=== PATIENT | female | born 1970 | race Caucasian/White ===

== ENCOUNTER 2017-02-28 15:24 | Emergency (ER) | payer MEDICAID, OTHER ==
[~2017-02-28] VITALS: Ht 160 cm; Wt 77.1 kg
[2017-02-28] MEDS ORDERED: predniSONE 20 MG TABLET PO ONE (16:00)
[2017-02-28] MEDS ORDERED: AZITHROMYCIN 250 MG TABLET PO ONE (16:00)
--- NOTE | 2017-02-28 16:28 | NUR ---
Patient discharged to home in stable conditon. Written and verbal after care instructions given to patient. Patient verbalizes understanding of instructions.
--- NOTE | 2017-02-28 16:33 | NUR ---
Patient left ER with brisk steady gait@[id number], pending changing patient's status by our ER registration staff in the [employer] computer system from "PRE-ER status to REG ER status" at this time.
[2017-02-28] MEDS ORDERED: predniSONE 10 MG TABLET ONE (16:34)
[2017-02-28] MEDS ORDERED: AZITHROMYCIN 250 MG TABLET ONE (16:34)
[2017-02-28] MEDS ORDERED: predniSONE 50 MG TABLET ONE (16:34)
== END 2017-02-28 17:11 | disposition home or self-care (01) ==
LOC: ER 17:11
DX: I88.9 Nonspecific lymphadenitis, unspecified (principal); J45.909 Unspecified asthma, uncomplicated; J02.9 Acute pharyngitis, unspecified; Z88.2 Allergy status to sulfonamides; Z88.8 Allergy status to other drugs, medicaments and biological substances; Z91.040 Latex allergy status
CPT/HCPCS: 99283; A4663; J7512 ×2; Q0144

== ENCOUNTER 2017-09-05 15:11 | Emergency (ER) | payer MEDICAID, OTHER ==
[~2017-09-05] VITALS: Ht 162.6 cm; Wt 34.0 kg
--- NOTE | 2017-09-05 17:17 | NUR ---
Patient discharged to home in stable conditon. Written and verbal after care instructions given. Patient verbalizes understanding of instructions.
[2017-09-05 17:18] VITALS: BP 118/85
== END 2017-09-05 17:18 | disposition home or self-care (01) ==
LOC: ER 15:12
DX: R21 Rash and other nonspecific skin eruption (principal); J45.909 Unspecified asthma, uncomplicated; Z88.2 Allergy status to sulfonamides
CPT/HCPCS: A4663

== ENCOUNTER 2017-09-20 02:33 | Emergency (ER) | payer OTHER ==
[~2017-09-20] VITALS: Ht 160 cm; Wt 79.4 kg
--- NOTE | 2017-09-20 02:47 | NUR ---
Dr. Hoover at bedside for MSE
--- NOTE | 2017-09-20 03:00 | NUR ---
Pt stable for discharge per MD. Pt given ACI. Pt verbalized understanding of dc instructions. Pt ambulated out of ER with steady gait
[2017-09-20 03:20] VITALS: BP 154/48
== END 2017-09-20 03:00 | disposition home or self-care (01) ==
LOC: ER 02:36
DX: R21 Rash and other nonspecific skin eruption (principal); J45.909 Unspecified asthma, uncomplicated; Z88.1 Allergy status to other antibiotic agents; Z88.2 Allergy status to sulfonamides
CPT/HCPCS: A4663

== ENCOUNTER 2018-05-13 23:38 | Emergency (ER) | payer OTHER ==
[~2018-05-13] VITALS: Ht 160 cm; Wt 79.4 kg
--- NOTE | 2018-05-13 23:52 | NUR ---
Dr. Peacock at bedside for MSE.
--- NOTE | 2018-05-14 00:04 | NUR ---
Patient discharged to home in stable conditon. Written and verbal after care instructions given. Patient verbalizes understanding of instructions. Patient ambulated out of ER with steady gait, no acute signs of distress, VSS, all belongings taken.
[2018-05-14 00:05] VITALS: BP 127/97
== END 2018-05-14 00:06 | disposition home or self-care (01) ==
LOC: ER 23:40
DX: H60.91 Unspecified otitis externa, right ear (principal); J45.909 Unspecified asthma, uncomplicated; Z88.2 Allergy status to sulfonamides; Z88.8 Allergy status to other drugs, medicaments and biological substances; Z91.040 Latex allergy status
CPT/HCPCS: 99283; A4663

== ENCOUNTER 2019-03-21 21:12 | Emergency (ER) | payer OTHER ==
[~2019-03-21] VITALS: Ht 160 cm; Wt 88.9 kg
[2019-03-21] MEDS ORDERED: OXYCODONE/APAP 5-325 MG TABLET PO ONE ×2 (21:30→22:45)
[2019-03-21] MEDS ORDERED: ONDANSETRON ODT 4 MG TAB.RAPDIS SL ONE ×2 (21:30→22:45)
[2019-03-21] MEDS ORDERED: OXYCODONE/APAP 5-325 MG TABLET ONE ×2 (21:37→22:47)
[2019-03-21] MEDS ORDERED: ONDANSETRON ODT 4 MG TAB.RAPDIS ONE ×2 (21:37→22:50)
--- NOTE | 2019-03-21 22:30 | NUR ---
Crutches dispensed. Pt instructed on proper use of crutches. Patient able to demonstrate correct use of crutches.
--- NOTE | 2019-03-21 22:57 | NUR ---
Patient discharged to home in stable conditon with boyfriend taking patient home. Written and verbal after care instructions given. Patient verbalizes understanding of instructions.
[2019-03-21 22:59] VITALS: BP 110/70
== END 2019-03-21 23:01 | disposition home or self-care (01) ==
LOC: ER 21:12
DX: M79.662 Pain in left lower leg (principal); J45.909 Unspecified asthma, uncomplicated; Z88.2 Allergy status to sulfonamides; Z88.8 Allergy status to other drugs, medicaments and biological substances; Z91.040 Latex allergy status
CPT/HCPCS: 73590; A4663; Q0162

== ENCOUNTER 2020-11-20 02:25 | Emergency (ER) | payer OTHER ==
[~2020-11-20] VITALS: Ht 160 cm; Wt 89.8 kg
[2020-11-20] MEDS ORDERED: ONDANSETRON 4 MG/2 ML VIAL ONE (03:14)
[2020-11-20] MEDS ORDERED: HYDROMORPHONE 2 MG/1 ML DISP.SYRIN ONE (03:14)
[2020-11-20] MEDS ORDERED: HYDROMORPHONE 1 MG/1 ML DISP.SYRIN IM ONE (03:15)
[2020-11-20] MEDS ORDERED: ONDANSETRON 4 MG/2 ML VIAL IM ONE (03:15)
--- NOTE | 2020-11-20 04:00 | NUR ---
Patient states pain is better and dizziness improve. Patient states she is okay to go home now with RX.
--- NOTE | 2020-11-20 04:21 | NUR ---
Patient discharged to home in stable condition with boyfriend taking patient home. Written and verbal after care instructions given. Patient verbalizes understanding of instructions. Stressed follow up or return to ER for worsening s/s.
[2020-11-20 04:25] VITALS: BP 128/62
== END 2020-11-20 04:26 | disposition home or self-care (01) ==
LOC: ER 02:30
DX: H83.02 Labyrinthitis, left ear (principal); Z88.2 Allergy status to sulfonamides; Z88.1 Allergy status to other antibiotic agents; Z91.040 Latex allergy status; J45.909 Unspecified asthma, uncomplicated
CPT/HCPCS: 96372 ×2; 99284; J1170; J2405; A4663

== ENCOUNTER 2021-06-08 08:24 | Inpatient (IN) | payer OTHER ==
[~2021-06-08] VITALS: Ht 160 cm; Wt 89.8 kg
[2021-06-08] MEDS ORDERED: MAG HYDROX/AL HYDROX/SIMETH 30 ML LIQUID UDC PO ONE (08:45)
[2021-06-08] MEDS ORDERED: LIDOCAINE VISCUS 2% 15 ML UDC MM ONE (08:45)
[2021-06-08] MEDS ORDERED: ONDANSETRON 4 MG/2 ML VIAL IV ONE ×2 (08:45→10:30)
[2021-06-08] MEDS ORDERED: IV NORMAL SALINE 1000 ML BAG IV ONE ×2 (08:45→10:00)
[2021-06-08] MEDS ORDERED: PANTOPRAZOLE SODIUM 40 MG VIAL IV ONE (08:45)
[2021-06-08] MEDS ORDERED: LIDOCAINE VISCUS 2% 15 ML UDC ONE (08:56)
[2021-06-08] MEDS ORDERED: PANTOPRAZOLE SODIUM 40 MG VIAL ONE (08:56)
[2021-06-08] MEDS ORDERED: ONDANSETRON 4 MG/2 ML VIAL ONE ×2 (08:56→10:35)
[2021-06-08] MEDS ORDERED: KETOROLAC TROMETHAMINE 15 MG INJ IVP ONE ×2 (09:15→11:15)
[2021-06-08] MEDS ORDERED: KETOROLAC TROMETHAMINE 15 MG INJ ONE ×2 (09:22→11:10)
[2021-06-08] MEDS ORDERED: HYDROMORPHONE 1 MG/1 ML DISP.SYRIN IV ONE ×5 (09:30→13:45)
[2021-06-08] MEDS ORDERED: HYDROMORPHONE 1 MG/1 ML DISP.SYRIN ONE ×4 (09:32→13:53)
[2021-06-08 09:45] LABS: MEAN CORPUSCULAR HEMOGLOBIN 30.1 uug (24.7-32.8); MEAN CORPUSCULAR VOLUME 84.7 fL (75.5-95.3); PLATELET COUNT (AUTO) 251 K/uL (179-408)
[2021-06-08 10:01] LABS: CREATININE 0.7 mg/dL (0.6-1.3); POTASSIUM 3.8 mmol/L (3.5-5.1)
[2021-06-08 10:07] LABS: BILIRUBIN,DIRECT 0.1 mg/dL (0.0-0.2); BILIRUBIN,TOTAL 0.5 mg/dL (0.2-1.0); TOTAL PROTEIN, SERUM 7.8 g/dL (6.4-8.2)
[2021-06-08] MEDS ORDERED: SWABABLE VALVE TRANSFER SET EA MC ONE (10:19)
[2021-06-08] MEDS ORDERED: IV NORMAL SALINE 250 ML IV ONE (10:19)
[2021-06-08] MEDS ORDERED: IOHEXOL 300MG/ML 100 ML INFUS..BTL ONE (10:19)
[2021-06-08] MEDS ORDERED: METRONIDAZOLE 500 MG/NS 100 ML PIGGYBACK IV ONE (13:30)
[2021-06-08] MEDS ORDERED: METRONIDAZOLE 500 MG/NS 100ML 100 ML IV ONE (13:51)
--- NOTE | 2021-06-08 15:10 | NUR ---
Called report to PRESTON Stern.
[2021-06-08 15:30] VITALS: BP 134/82
--- NOTE | 2021-06-08 15:30 | NUR ---
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 dawn with pt, routinfe admission care rendered, initial assessment done and safety measures maintained, kept npo.Call light within reach, dozing on and off during assessment and when awake requesting for pain med.
[2021-06-08] MEDS ORDERED: ONDANSETRON 4 MG/2 ML VIAL IV PRN (16:30)
[2021-06-08] MEDS ORDERED: ACETAMINOPHEN 650 MG SUPP.RECT RC PRN (16:30)
[2021-06-08 16:36] LABS: *BILIRUBIN,URIN NEGATIVE (NEGATIVE); *BLOOD, URINE NEGATIVE (NEGATIVE); *COLOR,URINE YELLOW (YELLOW); *KETONES,URINE 3+ (NEGATIVE); *UROBILINOGEN,URINE 0.2 E.U./dl (NORMAL); LEUKOCYTE ESTERASE ,URINE NEGATIVE (NEGATIVE); NITRITE, URINE NEGATIVE (NEGATIVE); PH,URINE 7.5 (5.0-8.0); UGLUCOSE NEGATIVE (NEGATIVE)
[2021-06-08 16:40] LABS: *CLARITY,URINE HAZY (CLEAR); BACTERIA,URINE MODERATE /HPF (NONE SEEN); SQUAMOUS EPITHELIAL CELL,UR FEW /HPF (NONE SEEN)
[2021-06-08] MEDS: HYDROMORPHONE 1 MG/1 ML DISP.SYRIN IV PRN ×3 (16:53→23:52)
[2021-06-08] MEDS: IV D5/ 0.9% NACL 1,000 ML IV PRN ×2 (17:05→23:52)
--- NOTE | 2021-06-08 18:30 | NUR ---
resting, no distress noted, fiancee in the room, call light within reach
[2021-06-08 20:00] VITALS: BP 156/98
[2021-06-08] MEDS ORDERED: HYDROMORPHONE 1 MG/1 ML DISP.SYRIN IV STA (21:12)
[2021-06-09] MEDS: HYDROMORPHONE 1 MG/1 ML DISP.SYRIN IV PRN ×6 (03:15→23:29)
[2021-06-09] MEDS ORDERED: MEROPENEM 500 MG VIAL IV ONE (04:25)
[2021-06-09 05:39] VITALS: BP 133/80
[2021-06-09] MEDS ORDERED: MEROPENEM 0.5 G in IV NORMAL SALINE 50 ML IV SCH (06:00)
[2021-06-09] MEDS ORDERED: MEROPENEM 0.5 G in IV NORMAL SALINE 50 ML IV ONE (06:00)
[2021-06-09 07:21] LABS: HEMATOCRIT 39.6 % (31.2-41.9); MEAN CORPUSCULAR HEMOGLOBIN 28.8 uug (24.7-32.8); MEAN CORPUSCULAR VOLUME 85.6 fL (75.5-95.3); PLATELET COUNT (AUTO) 233 K/uL (179-408)
--- NOTE | 2021-06-09 07:23 | NUR ---
Awake , alert and oriented. No resp distress. Iv hydration ongoing and tolerated. Assisted to commode. Kept comfortable. Will continue to monitor.
[2021-06-09 07:51] LABS: BILIRUBIN,TOTAL 0.7 mg/dL (0.2-1.0); CREATININE 0.8 mg/dL (0.6-1.3); MAGNESIUM 1.8 mg/dL (1.8-2.4); PHOSPHOROUS 2.7 mg/dL (2.5-4.9); POTASSIUM 3.4 mmol/L (3.5-5.1); TOTAL PROTEIN, SERUM 6.8 g/dL (6.4-8.2)
[2021-06-09] MEDS ORDERED: POTASSIUM CHLORIDE 50 ML IV SCH (08:30)
[2021-06-09] MEDS: PANTOPRAZOLE SODIUM 40 MG VIAL IV SCH (08:56)
[2021-06-09] MEDS ORDERED: ASCO500C6 PO (11:20)
[2021-06-09] MEDS ORDERED: ERGO50CA PO (11:22)
[2021-06-09] MEDS ORDERED: CYAN100T44 GT (11:22)
--- NOTE | 2021-06-09 13:52 | NUR ---
WOUND CARE CONSULT: REVIEWED CHART AND SPOKE WITH NURSING STAFF REGARDING PT'S REDNESS/RASH TO BUTTOCKS, PRESENT ON ADMISSION. RECOMMENDATIONS MADE FOR SKIN CARE AND PROTECTION. DISCUSSED WITH NURSING STAFF. MD IN AGREEMENT WITH PLAN OF CARE.
[2021-06-09] MEDS ORDERED: Z GUARD REMEDY PASTE 57 GM TUBE TOP PRN (14:00)
--- NOTE | 2021-06-09 14:00 | NUR ---
Explained to patient risks/benefits of having midline, gave consent.
[2021-06-09] MEDS: MEROPENEM 0.5 G in IV NORMAL SALINE 50 ML IV SCH ×2 (14:09→23:05)
--- NOTE | 2021-06-09 14:24 | NUR ---
Patient stated she sometimes feel out of breath d/t pain. FISHER PURSE SEINE [place] aware with order to put on 2 lpm via nc prn. Patient tolerated spo2 noted 96%.
[2021-06-09 16:08] VITALS: BP 155/86
[2021-06-09] MEDS: CLOTRIMAZOLE 1% CREAM 30 GM TUBE TOP SCH (17:47)
--- NOTE | 2021-06-09 18:53 | NUR ---
Alert and oriented. Still npo. No nausea or vomiting noted. Pain relived by medication. Midline nurse here to insert. Patient kept comfortable. Call light in reach. Needs attended.
--- NOTE | 2021-06-09 19:20 | NUR ---
Alert oriented, no sob no chest pain, cont on pain management due pancreatitis, abdomen tender to touch, with episode of nausea due to but no emesis, cont to monitor.
[2021-06-09 20:03] VITALS: BP 133/61
[2021-06-09] MEDS: Z GUARD REMEDY PASTE 57 GM TUBE TOP SCH (23:30)
[2021-06-10] MEDS: HYDROMORPHONE 1 MG/1 ML DISP.SYRIN IV PRN ×7 (02:48→23:54)
[2021-06-10 04:55] VITALS: BP 118/64
[2021-06-10] MEDS: MEROPENEM 0.5 G in IV NORMAL SALINE 50 ML IV SCH ×3 (05:04→21:04)
--- NOTE | 2021-06-10 06:32 | NUR ---
Patient alert oriented, no sob no chest pain, cont on pain management due to pancreatitis, patient remain npo at this time, cont to monitor.
[2021-06-10 06:42] LABS: HEMATOCRIT 37.1 % (31.2-41.9); MEAN CORPUSCULAR HEMOGLOBIN 28.8 uug (24.7-32.8); MEAN CORPUSCULAR VOLUME 86.5 fL (75.5-95.3); PLATELET COUNT (AUTO) 212 K/uL (179-408)
[2021-06-10 06:56] LABS: CREATININE 0.7 mg/dL (0.6-1.3); POTASSIUM 3.2 mmol/L (3.5-5.1)
--- NOTE | 2021-06-10 07:15 | NUR ---
received patient in bed awake, no complains of SOB at this time. continues on pain management. call light and belongings within reach. will continue to monitor
[2021-06-10] MEDS: PANTOPRAZOLE SODIUM 40 MG VIAL IV SCH (08:53)
[2021-06-10] MEDS: POTASSIUM CHLORIDE 50 ML IV SCH ×2 (08:53→10:04)
[2021-06-10] MEDS: CLOTRIMAZOLE 1% CREAM 30 GM TUBE TOP SCH ×2 (09:01→17:08)
[2021-06-10] MEDS: Z GUARD REMEDY PASTE 57 GM TUBE TOP SCH ×2 (09:02→20:22)
--- NOTE | 2021-06-10 09:51 | NUR ---
WOUND CARE CONSULT: PT PRESENTS WITH INNER BUTTOCK DISCOLORATION/IRRITATION, PRESENT ON ADMISSION. PT STATES HAS BEEN HAVING LOOSE STOOLS. RECOMMENDATIONS MADE FOR SKIN PROTECTION AND DISCUSSED WITH NURSING STAFF.MD IN AGREEMENT WITH PLAN OF CARE.
--- NOTE | 2021-06-10 11:14 | NUR ---
second bag of regular potassium not given due to patient complaining of too much pain. second bag called pharmacy for kcl with lidodcaine.
[2021-06-10 11:19] VITALS: BP 115/62
[2021-06-10] MEDS ORDERED: POTASSIUM CHLORIDE 10 MEQ, LIDOCAINE-MPF 1% 1 ML in IV DEXTROSE 5% 100 ML IV SCH (12:00)
[2021-06-10 15:09] VITALS: BP 125/54
--- NOTE | 2021-06-10 18:01 | NUR ---
patient in bed sleeping in stable condition, patient continues to be on pain management. no complains of any SOB at this time will report to oncoming shift.
--- NOTE | 2021-06-10 19:30 | NUR ---
RECEIVED PT AWAKE, ALERT AND ORIENTEDX4. FIANCE AT BEDSIDE. PT IN NO ACUTE DISTRESS. IV INTACT. SAFETY AND COMFORT PROVIDED. WILL CONTINUE TO MONITOR.
[2021-06-10 20:20] VITALS: BP 115/66
[2021-06-11] MEDS: HYDROMORPHONE 1 MG/1 ML DISP.SYRIN IV PRN ×6 (03:00→18:27)
[2021-06-11] MEDS: IV D5/ 0.9% NACL 1,000 ML IV PRN ×2 (03:08→19:00)
[2021-06-11 04:15] VITALS: BP 125/62
[2021-06-11] MEDS: MEROPENEM 0.5 G in IV NORMAL SALINE 50 ML IV SCH ×3 (06:05→22:22)
[2021-06-11 06:24] LABS: MEAN CORPUSCULAR HEMOGLOBIN 28.4 uug (24.7-32.8); MEAN CORPUSCULAR VOLUME 87.6 fL (75.5-95.3); PLATELET COUNT (AUTO) 213 K/uL (179-408)
[2021-06-11 06:40] LABS: CREATININE 0.6 mg/dL (0.6-1.3); POTASSIUM 3.2 mmol/L (3.5-5.1)
--- NOTE | 2021-06-11 06:46 | NUR ---
PT SLEPT INTERMITTENTLY. PT IN NO ACUTE DISTRESS. IV INTACT. PRESCRIBED MEDICATION GIVEN AND PT TOLERATED IT WELL. PT GIVEN DILAUDID 1MG AT 2022H, 2354H, 0300Hand 0606h PRN FOR PAIN. PT TOLERATED IT WELL. SAFETY AND COMFORT PROVIDED. ALL NEEDS ARE MET. WILL ENDORSE TO INCOMING NURSE FOR CONTINUITY OF CARE.
[2021-06-11] MEDS: PANTOPRAZOLE SODIUM 40 MG VIAL IV SCH (09:24)
[2021-06-11] MEDS: Z GUARD REMEDY PASTE 57 GM TUBE TOP SCH ×2 (09:25→20:30)
[2021-06-11] MEDS: CLOTRIMAZOLE 1% CREAM 30 GM TUBE TOP SCH ×2 (09:26→17:00)
[2021-06-11] MEDS: POTASSIUM CHLORIDE 20 MEQ TAB.PRT.SR PO SCH ×2 (11:19→12:19)
[2021-06-11 11:20] VITALS: BP 118/59
[2021-06-11 15:36] VITALS: BP 151/84
[2021-06-11 20:12] VITALS: BP 128/71
[2021-06-11] MEDS ORDERED: HYDROMORPHONE 1 MG/1 ML DISP.SYRIN IV ONE (20:15)
--- NOTE | 2021-06-11 20:15 | NUR ---
RECEIVED PATIENT AWAKE IN BED. C/O PAIN IN ABDOMEN. CALLED OUT TO MD FOR FURTHER ORDERS. VSS. IVF INFUSING WELL. CALL LIGHT IN REACH. ALL NEEDS ATTENDED. WILL CONTINUE TO MONITOR AND ASSESS.
[2021-06-11] MEDS: HYDROMORPHONE 2 MG/1 ML DISP.SYRIN IV PRN (22:23)
[2021-06-12] MEDS: HYDROMORPHONE 2 MG/1 ML DISP.SYRIN IV PRN ×5 (03:07→19:57)
[2021-06-12 04:08] VITALS: BP 133/64
[2021-06-12] MEDS: MEROPENEM 0.5 G in IV NORMAL SALINE 50 ML IV SCH ×3 (05:56→21:52)
[2021-06-12] MEDS: IV D5/ 0.9% NACL 1,000 ML IV PRN ×2 (05:56→15:48)
[2021-06-12 06:09] LABS: HEMATOCRIT 34.1 % (31.2-41.9); MEAN CORPUSCULAR HEMOGLOBIN 29.1 uug (24.7-32.8); MEAN CORPUSCULAR VOLUME 86.3 fL (75.5-95.3); PLATELET COUNT (AUTO) 255 K/uL (179-408)
[2021-06-12 06:24] LABS: CREATININE 0.7 mg/dL (0.6-1.3)
[2021-06-12] MEDS: PANTOPRAZOLE SODIUM 40 MG TABLET.DR PO SCH (06:26)
[2021-06-12] MEDS: Z GUARD REMEDY PASTE 57 GM TUBE TOP SCH ×2 (08:03→21:27)
[2021-06-12] MEDS: CLOTRIMAZOLE 1% CREAM 30 GM TUBE TOP SCH ×2 (08:03→16:29)
[2021-06-12 12:00] VITALS: BP 130/86
[2021-06-12 16:00] VITALS: BP 125/86
[2021-06-12 20:12] VITALS: BP 147/60
[2021-06-13] MEDS: HYDROMORPHONE 2 MG/1 ML DISP.SYRIN IV PRN ×3 (00:18→09:04)
[2021-06-13 04:16] VITALS: BP 136/61
--- NOTE | 2021-06-13 04:24 | NUR ---
IV NOTED TO LEFT FA #22 GAUGE, DISLODGED. UNABLE TO RESTART IV. PATIENT HAD A MID-LINE 2 DAYS AGO NOTED TO RIGHT UPPER ARM, THAT INFILTRATED AND WAS REMOVED. CALLED OUT TO ACCESS DEVELOPER FOR MID-LINE INSERTION IN AM.
[2021-06-13] MEDS: MEROPENEM 0.5 G in IV NORMAL SALINE 50 ML IV SCH (06:00)
[2021-06-13] MEDS: PANTOPRAZOLE SODIUM 40 MG TABLET.DR PO SCH (06:19)
--- NOTE | 2021-06-13 06:30 | NUR ---
MERREM IVPB HELD PER APRON TRIMMER. NO IV ACCESS AT THIS TIME. DANCE THERAPIST NOTIFIED THAT PATIENT NEEDS MID-LINE. ENDORSED TO AM SHIFT. WILL CONTINUE TO MONITOR AND ASSESS.
[2021-06-13 06:49] LABS: HEMATOCRIT 37.4 % (31.2-41.9); MEAN CORPUSCULAR HEMOGLOBIN 28.9 uug (24.7-32.8); MEAN CORPUSCULAR VOLUME 86.4 fL (75.5-95.3); PLATELET COUNT (AUTO) 275 K/uL (179-408)
[2021-06-13 07:00] LABS: CREATININE 0.6 mg/dL (0.6-1.3); POTASSIUM 3.5 mmol/L (3.5-5.1)
[2021-06-13] MEDS: Z GUARD REMEDY PASTE 57 GM TUBE TOP SCH ×2 (08:00→20:21)
[2021-06-13] MEDS: GEMFIBROZIL 600 MG TABLET PO SCH ×2 (08:00→20:20)
[2021-06-13] MEDS: CLOTRIMAZOLE 1% CREAM 30 GM TUBE TOP SCH ×2 (08:00→16:04)
[2021-06-13 11:10] VITALS: BP 151/64
[2021-06-13] MEDS: levoFLOXacin 500 MG TABLET PO SCH (13:03)
[2021-06-13] MEDS: HYDROMORPHONE 2 MG/1 ML DISP.SYRIN IM PRN ×3 (13:04→23:01)
[2021-06-13 15:34] VITALS: BP 129/95
[2021-06-13 20:18] VITALS: BP 142/53
[2021-06-14] MEDS: HYDROMORPHONE 2 MG/1 ML DISP.SYRIN IM PRN ×2 (03:52→08:01)
[2021-06-14 04:42] VITALS: BP 142/84
--- NOTE | 2021-06-14 05:50 | NUR ---
Pt slept intermittently throughout the night. Dilaudid given for pain as ordered and per patient's request, tolerated medication well. Denies SOB or chest pain at this time. No distress noted. Safety and comfort provided. No other issues or concerns at this time, will endorse to day shift.
[2021-06-14] MEDS: PANTOPRAZOLE SODIUM 40 MG TABLET.DR PO SCH (06:27)
[2021-06-14 07:44] LABS: CREATININE 0.7 mg/dL (0.6-1.3); POTASSIUM 4.2 mmol/L (3.5-5.1)
[2021-06-14] MEDS: GEMFIBROZIL 600 MG TABLET PO SCH (08:00)
[2021-06-14] MEDS: Z GUARD REMEDY PASTE 57 GM TUBE TOP SCH (08:01)
[2021-06-14] MEDS: CLOTRIMAZOLE 1% CREAM 30 GM TUBE TOP SCH (08:01)
[2021-06-14 09:09] LABS: HEMATOCRIT 38.3 % (31.2-41.9); MEAN CORPUSCULAR HEMOGLOBIN 28.8 uug (24.7-32.8); MEAN CORPUSCULAR VOLUME 86.8 fL (75.5-95.3); PLATELET COUNT (AUTO) 316 K/uL (179-408)
[2021-06-14 11:45] VITALS: BP 125/56
[2021-06-14] MEDS ORDERED: ONDA4TAB5 PO (12:49)
[2021-06-14] MEDS ORDERED: HYDR-3980 PO (12:49)
[2021-06-14] MEDS ORDERED: GEMF600T PO (12:49)
[2021-06-14] MEDS ORDERED: LEVO500T90 PO (12:49)
[2021-06-14] MEDS: levoFLOXacin 500 MG TABLET PO SCH (13:20)
--- NOTE | 2021-06-14 13:44 | NUR ---
dc orders received noted and carried out dc instruction and education given to the pt .pt said she will follow up with her pcp in one week.dc heplock per md orders.pt left the facility via private car in stable condition
== END 2021-06-14 13:50 | disposition home or self-care (01) | DRG 282 ==
LOC: ER 08:24 → MEDSURG3 14:46 → UNDOADMIN 14:46 → MEDSURG3 15:02
PROVIDERS: ADMIT Internal Medicine; ATTEND Nurse Practitioner Acute Care
PROC: 05H533Z Insertion of Infusion Device into Right Subclavian Vein, Percutaneous Approach (ICD-10-PCS; principal; 2021-06-09)
PROC: B546ZZA Ultrasonography of Right Subclavian Vein, Guidance (ICD-10-PCS; principal; 2021-06-09)
DX: K85.90 Acute pancreatitis without necrosis or infection, unspecified (principal); K65.9 Peritonitis, unspecified; E22.2 Syndrome of inappropriate secretion of antidiuretic hormone; K76.0 Fatty (change of) liver, not elsewhere classified; G89.4 Chronic pain syndrome; K29.80 Duodenitis without bleeding; N39.0 Urinary tract infection, site not specified; B96.20 Unspecified Escherichia coli [E. coli] as the cause of diseases classified elsewhere; E78.1 Pure hyperglyceridemia; E86.1 Hypovolemia; J45.909 Unspecified asthma, uncomplicated; Z20.822 Contact with and (suspected) exposure to COVID-19; Z88.1 Allergy status to other antibiotic agents; Z90.49 Acquired absence of other specified parts of digestive tract; Z88.2 Allergy status to sulfonamides; Z68.35 Body mass index [BMI] 35.0-35.9, adult
CPT/HCPCS: 36415; 70030-TC; 71045; 83690; 83735; 84100; 84478; 85025; 87077; 87086; 93005; C9113; G0378; J1170; J1885; J2001; J2185; J2405; J3480; J3490; J7030; J7040; J7042; J7050; J7060; Q9967

== ENCOUNTER 2021-12-16 21:57 | Emergency (ER) | payer OTHER ==
[~2021-12-16] VITALS: Ht 160 cm; Wt 86.2 kg
[~2021-12-16 21:57] MED LIST: ASCO500C6 PO; CYAN100T44 GT; ERGO50CA PO; GEMF600T PO; HYDR-3980 PO; LEVO500T90 PO; ONDA4TAB5 PO
--- NOTE | 2021-12-16 22:08 | NUR ---
PT AMBULATED TO ER WITH C/O RT UPPER ARM WORSENING PAIN AFTER RECEIVING 1ST DOSE OF COVID VACCINE. NO SOB OR LABORED BREATHING, AFEBRILE. A/O X4. DENIES ANY CP/PRESSURE. NO GI/ DISTRESS. CLEAR SPEECH, COMPLETE SENTENCES.
--- NOTE | 2021-12-16 22:12 | NUR ---
DR. MAC AT BEDSIDE, MSE IN PROGRESS.
[2021-12-16] MEDS ORDERED: HYDROMORPHONE 1 MG/1 ML DISP.SYRIN IM ONE (22:30)
[2021-12-16] MEDS ORDERED: ONDANSETRON ODT 4 MG TAB.RAPDIS SL ONE (22:30)
--- NOTE | 2021-12-16 22:30 | NUR ---
LAB AT BEDSIDE.
--- NOTE | 2021-12-16 22:32 | NUR ---
XRAY AT BEDSIDE.
[2021-12-16] MEDS ORDERED: ONDANSETRON ODT 4 MG TAB.RAPDIS ONE (22:36)
[2021-12-16] MEDS ORDERED: HYDROMORPHONE 1 MG/1 ML DISP.SYRIN ONE (22:36)
[2021-12-16] MEDS ORDERED: HYDROMORPHONE 2 MG/1 ML DISP.SYRIN ONE (22:37)
[2021-12-16 22:46] LABS: MEAN CORPUSCULAR HEMOGLOBIN 28.9 uug (24.7-32.8); MEAN CORPUSCULAR VOLUME 84.7 fL (75.5-95.3); PLATELET COUNT (AUTO) 266 K/uL (179-408)
[2021-12-16 22:52] LABS: BILIRUBIN,DIRECT 0.1 mg/dL (0.0-0.2); BILIRUBIN,TOTAL 0.4 mg/dL (0.2-1.0); CREATININE 0.7 mg/dL (0.6-1.3); POTASSIUM 3.6 mmol/L (3.5-5.1)
--- NOTE | 2021-12-16 23:03 | NUR ---
VIPUL FROM US AT BEDSIDE.
[2021-12-17] MEDS ORDERED: OXYC-128 PO (00:25)
[2021-12-17] MEDS ORDERED: ONDA4TAB5 PO (00:25)
[2021-12-17] MEDS ORDERED: ONDANSETRON ODT 4 MG TAB.RAPDIS SL ONE (00:30)
[2021-12-17] MEDS ORDERED: ONDANSETRON ODT 4 MG TAB.RAPDIS ONE (00:38)
--- NOTE | 2021-12-17 00:42 | NUR ---
Patient discharged to home in stable condition. Written and verbal after care instructions given. Patient verbalizes understanding of instructions. Stressed follow up or return to ER for worsening s/s. Steady gait, accompanied by .
[2021-12-17 00:43] VITALS: BP 142/86
== END 2021-12-17 00:44 | disposition home or self-care (01) ==
LOC: ER 22:02
DX: M75.51 Bursitis of right shoulder (principal); E11.9 Type 2 diabetes mellitus without complications; J45.909 Unspecified asthma, uncomplicated; Z90.49 Acquired absence of other specified parts of digestive tract; Z88.2 Allergy status to sulfonamides; Z91.040 Latex allergy status; Z88.8 Allergy status to other drugs, medicaments and biological substances; Z79.899 Other long term (current) drug therapy; Z79.2 Long term (current) use of antibiotics
CPT/HCPCS: 36415; 73060; 80048; 80076; 85025; 85379; 85730; 93971; 96372; 99285; J1170 ×2; A4663; Q0162

== ENCOUNTER 2022-01-12 12:28 | Emergency (ER) | payer OTHER ==
[~2022-01-12] VITALS: Ht 160 cm; Wt 89.8 kg
[~2022-01-12 12:28] MED LIST changes: +OXYC-128 PO
--- NOTE | 2022-01-12 12:49 | NUR ---
On arrival to ER bed 2A, extra warm blankets on her per patient's request. Patient is AOx4, calm & breathing easily, skin warm & dry, pending MD evaluation.
[2022-01-12] MEDS ORDERED: IV NORMAL SALINE 1000 ML BAG IV ONE (13:00)
[2022-01-12] MEDS ORDERED: ONDANSETRON 4 MG/2 ML VIAL IV ONE (13:00)
[2022-01-12] MEDS ORDERED: MORPHINE SULFATE 2 MG/1 ML DISP.SYRIN IV ONE (13:00)
--- NOTE | 2022-01-12 13:00 | NUR ---
Patient is constantly moaning loudly but adamantly refuses IV morphine for pain. MD is aware. Comfort and safety measures maintained.
[2022-01-12 13:05] LABS: HEMATOCRIT 43.6 % (31.2-41.9); MEAN CORPUSCULAR HEMOGLOBIN 29.7 uug (24.7-32.8); MEAN CORPUSCULAR VOLUME 85.4 fL (75.5-95.3); PLATELET COUNT (AUTO) 251 K/uL (179-408)
[2022-01-12] MEDS ORDERED: ONDANSETRON 4 MG/2 ML VIAL ONE (13:05)
[2022-01-12] MEDS ORDERED: MORPHINE SULFATE 4 MG/1 ML DISP.SYRIN ONE (13:05)
[2022-01-12 13:08] LABS: CREATININE 0.9 mg/dL (0.6-1.3); POTASSIUM 3.5 mmol/L (3.5-5.1)
--- NOTE | 2022-01-12 13:12 | NUR ---
Patient refused IV narcotic medicines (morphine), Dr Lucero notified.
[2022-01-12 13:13] LABS: BILIRUBIN,DIRECT 0.2 mg/dL (0.0-0.2); BILIRUBIN,TOTAL 0.9 mg/dL (0.2-1.0); TOTAL PROTEIN, SERUM 8.8 g/dL (6.4-8.2)
--- NOTE | 2022-01-12 13:13 | NUR ---
Patient ambulated to bathroom with slow steady gait to defecate. "I have diarrhea since yesterday." per patient's verbalization. Patient refused bedpan@this time.
--- NOTE | 2022-01-12 14:07 | NUR ---
Patient is resting comfortably on gurney with eyes closed, no vomiting seen while in ER. Patient had one diarrhea episode while in ER. Patient did not void yet, MD notified.
[2022-01-12] MEDS ORDERED: ONDA4TAB11 PO (14:10)
[2022-01-12] MEDS ORDERED: LOPE-195 PO (14:10)
--- NOTE | 2022-01-12 14:31 | NUR ---
Patient ambulated to bathroom to void but forgot to provide urine sample, MD notified. "OK to discharge without urine test." per Dr Lucero.
--- NOTE | 2022-01-12 14:32 | NUR ---
IV removed. Catheter intact and site benign. Pressure and 4x4 gauze applied to site. No bleeding noted. Patient discharged to home in stable condition. Written and verbal after care instructions given to patient. Patient verbalized understanding and compliance of instructions. Stressed follow up with primary doctor or return to ER for worsening s/s.
--- NOTE | 2022-01-12 14:33 | NUR ---
Patient left with her spouse in stable condition.
--- NOTE | 2022-01-16 07:53 | NUR ---
Late entry for 01/12/22@1308: Patient refused IV morphine, MD notified. All 4mg IV morphine was wasted per protocol and this wastage was witnessed by RN Masood Trujillo
--- NOTE | 2022-01-16 07:53 | NUR ---
Note alex in EDM - 01/16/22 at 0755 by CHARLEEN Late entry for 01/12/22@6096: Patient refused IV morphine, notified. 4mg IV morphine wasted per protocol and this wastage was witnessed by PRESTON Trujillo
== END 2022-01-12 14:35 | disposition home or self-care (01) ==
LOC: ER 12:28
DX: K52.9 Noninfective gastroenteritis and colitis, unspecified (principal); Z90.49 Acquired absence of other specified parts of digestive tract; G89.4 Chronic pain syndrome; Z88.2 Allergy status to sulfonamides; Z88.1 Allergy status to other antibiotic agents; Z91.040 Latex allergy status; J45.909 Unspecified asthma, uncomplicated; Z79.899 Other long term (current) drug therapy
CPT/HCPCS: 36415; 80048; 80076; 83690; 85025; 96374; 99284; J2405; A4663; J2270; J7030

== ENCOUNTER 2022-12-30 20:47 | Emergency (ER) | payer OTHER ==
[~2022-12-30] VITALS: Ht 167.6 cm; Wt 90.7 kg
[~2022-12-30 20:47] MED LIST changes: +LOPE-195 PO; +ONDA4TAB11 PO
--- NOTE | 2022-12-30 21:29 | NUR ---
Patient A/Ox4, speech clear, speaks in complete sentences. No acute neuro deficits noted. GCS15. Patient came for c/o upper abd pain that radiates around to the left side. Started earlier today after eating a burrito. +nausea, denies diarrhea/constipation. Patient in bed at lowest position, sr upx2, call light within reach. Fall and safety precautions implemented per protocol. Family at bedside accompanying patient.
[2022-12-30 21:30] LABS: HEMATOCRIT 46.5 % (31.2-41.9); MEAN CORPUSCULAR HEMOGLOBIN 28.9 uug (24.7-32.8); MEAN CORPUSCULAR VOLUME 84.9 fL (75.5-95.3); PLATELET COUNT (AUTO) 326 K/uL (179-408)
[2022-12-30] MEDS ORDERED: HYDROMORPHONE 1 MG/1 ML DISP.SYRIN IV ONE (21:30)
[2022-12-30] MEDS ORDERED: PROCHLORPERAZINE EDISYLATE 10 MG/2 ML VIAL IV ONE (21:30)
[2022-12-30] MEDS ORDERED: IV NORMAL SALINE 1000 ML BAG IV ONE (21:30)
[2022-12-30 21:41] LABS: CARBON DIOXIDE 29 mmol/L (21-32); CHLORIDE 101 mmol/L (98-107); CREATININE 0.9 mg/dL (0.6-1.3); GLUCOSE 169 mg/dL (74-106); LIPASE 117 U/L (73-393); POTASSIUM 3.9 mmol/L (3.5-5.1); UREA NITROGEN, BLOOD 9 mg/dL (7-18)
[2022-12-30] MEDS ORDERED: IOHEXOL 300MG/ML 100 ML INFUS..BTL ONE (21:48)
[2022-12-30 21:49] LABS: ALANINE AMINOTRANSFERASE 39 U/L (14-59); ALKALINE PHOSPHATASE 134 U/L (50-136); ASPARTATE AMINOTRANSFERASE 21 U/L (15-37); BILIRUBIN,DIRECT < 0.1 mg/dL (0.0-0.2); BILIRUBIN,TOTAL 0.6 mg/dL (0.2-1.0); TOTAL PROTEIN, SERUM 8.9 g/dL (6.4-8.2)
[2022-12-30] MEDS ORDERED: IV NORMAL SALINE 250 ML IV ONE (21:49)
[2022-12-30] MEDS ORDERED: SWABABLE VALVE TRANSFER SET EA MC ONE (21:49)
[2022-12-30] MEDS ORDERED: HYDROMORPHONE 2 MG/1 ML DISP.SYRIN ONE (22:32)
[2022-12-30] MEDS ORDERED: PROCHLORPERAZINE EDISYLATE 10 MG/2 ML VIAL ONE (22:32)
[2022-12-31] MEDS ORDERED: HYDR-3972 PO (00:59)
[2022-12-31] MEDS ORDERED: PROC5TAB56 PO (00:59)
[2022-12-31] MEDS ORDERED: TETR-66 PO (00:59)
[2022-12-31] MEDS ORDERED: METR500T PO (00:59)
[2022-12-31] MEDS ORDERED: BISM-146 PO (00:59)
[2022-12-31] MEDS ORDERED: OMEP20TA20 PO (00:59)
[2022-12-31 01:33] VITALS: BP 128/100
== END 2022-12-31 01:15 | disposition home or self-care (01) ==
LOC: ER 20:47
DX: K29.70 Gastritis, unspecified, without bleeding (principal); E11.9 Type 2 diabetes mellitus without complications; R94.31 Abnormal electrocardiogram [ECG] [EKG]; R00.0 Tachycardia, unspecified; Z90.49 Acquired absence of other specified parts of digestive tract; E66.9 Obesity, unspecified; Z68.32 Body mass index [BMI] 32.0-32.9, adult; J45.909 Unspecified asthma, uncomplicated; Z88.2 Allergy status to sulfonamides; Z88.1 Allergy status to other antibiotic agents; Z91.040 Latex allergy status; Z79.899 Other long term (current) drug therapy; D72.829 Elevated white blood cell count, unspecified
CPT/HCPCS: 99285; 74176; 96374; 71045; 96361; 96375; 80076; 80048; 83690; 85025; 84484; 36415; 93005; J0780; J1170; J7040; A4663; Q9967

== ENCOUNTER 2023-10-24 22:10 | Emergency (ER) | payer OTHER ==
[~2023-10-24] VITALS: Ht 160 cm; Wt 88.9 kg
[~2023-10-24 22:10] MED LIST changes: +BISM-146 PO; +HYDR-3972 PO; +METR500T PO; +OMEP20TA20 PO; +PROC5TAB56 PO; +TETR-66 PO
[2023-10-24] MEDS ORDERED: MECLIZINE HCL 25 MG TABLET PO ONE (23:00)
[2023-10-24 23:15] LABS: BASOPHILS # (AUTO) 0.1 K/UL (0.0-0.2); BASOPHILS % (AUTO) 1.7 % (0.0-2.0); EOSINOPHILS # (AUTO) 0.5 K/uL (0.0-0.7); EOSINOPHILS % (AUTO) 7.1 % (0.0-7.0); HEMATOCRIT 42.3 % (31.2-41.9); HEMOGLOBIN 14.4 g/dL (10.9-14.3); LYMPHOCYTES # (AUTO) 2.7 K/uL (0.8-4.8); LYMPHOCYTES % (AUTO) 35.9 % (20.5-51.5); MEAN CORPUSCULAR HEMOGLOBIN 30.2 uug (24.7-32.8); MEAN CORPUSCULAR HGB CONC 34 g/dL (32.3-35.6); MEAN CORPUSCULAR VOLUME 88.4 fL (75.5-95.3); MONOCYTES # (AUTO) 0.6 K/uL (0.1-1.30); MONOCYTES % (AUTO) 7.6 % (0.0-11.0); NEUTROPHILS # (AUTO) 3.5 K/uL (1.8-8.9); NEUTROPHILS % (AUTO) 47.7 % (38.5-71.5); PLATELET COUNT (AUTO) 284 K/uL (179-408); RED BLOOD CELL COUNT(AUTO) 4.78 MIL/uL (3.63-4.92); RED CELL DISTRIBUTION WIDTH 13.3 % (12.3-17.7); WHITE BLOOD COUNT (AUTO) 7.4 K/uL (3.8-11.8)
[2023-10-24 23:18] LABS: DIFFERENTIAL COMMENT 1
[2023-10-24 23:25] LABS: CALCIUM 9.3 mg/dL (8.5-10.1); CARBON DIOXIDE 25 mmol/L (21-32); CHLORIDE 104 mmol/L (98-107); CREATININE 0.7 mg/dL (0.6-1.3); GLUCOSE 152 mg/dL (74-106); SODIUM SERUM 140 mmol/L (136-145); UREA NITROGEN, BLOOD 10 mg/dL (7-18)
[2023-10-24 23:34] LABS: ALANINE AMINOTRANSFERASE 26 U/L (14-59); ALBUMIN 3.8 g/dL (3.4-5.0); ALKALINE PHOSPHATASE 114 U/L (50-136); ASPARTATE AMINOTRANSFERASE 11 U/L (15-37); BILIRUBIN,DIRECT 0.1 mg/dL (0.0-0.2); BILIRUBIN,TOTAL 0.2 mg/dL (0.2-1.0); TOTAL PROTEIN, SERUM 7.8 g/dL (6.4-8.2)
[2023-10-24] MEDS ORDERED: MECLIZINE HCL 25 MG TABLET ONE (23:45)
[2023-10-25] MEDS ORDERED: DOCUSATE SODIUM 100 MG CAPSULE PO ONE (01:05)
[2023-10-25] MEDS ORDERED: MECL-159 PO (02:37)
[2023-10-25 02:43] VITALS: BP 140/96; TEMP 98; O2SAT 98
== END 2023-10-25 02:45 | disposition home or self-care (01) ==
LOC: ER 22:12
DX: R42 Dizziness and giddiness (principal); J45.909 Unspecified asthma, uncomplicated; Z90.49 Acquired absence of other specified parts of digestive tract; Z88.2 Allergy status to sulfonamides; Z88.8 Allergy status to other drugs, medicaments and biological substances; Z91.040 Latex allergy status; Z79.2 Long term (current) use of antibiotics; Z79.899 Other long term (current) drug therapy
CPT/HCPCS: 36415; 70450; 84484; 85025; 85730; 93005; A4606; A4663; J8597

== ENCOUNTER 2024-04-11 17:27 | Emergency (ER) | payer MEDICAID, OTHER ==
[~2024-04-11] VITALS: Ht 160 cm; Wt 90.7 kg
[~2024-04-11 17:27] MED LIST changes: +MECL-159 PO
[2024-04-11] MEDS ORDERED: ACETAMINOPHEN ES 500 MG TABLET ONE (17:56)
[2024-04-11] MEDS ORDERED: IBUPROFEN 400 MG TABLET ONE (17:57)
[2024-04-11] MEDS: ACETAMINOPHEN ES 500 MG TABLET PO ONE (18:02)
[2024-04-11] MEDS: IBUPROFEN 400 MG TABLET PO ONE (18:02)
[2024-04-11] MEDS ORDERED: HYDR-3980 PO (18:27)
[2024-04-11] MEDS ORDERED: IBUP-1490 PO (18:27)
[2024-04-11 21:41] VITALS: BP 148/99; TEMP 98.6; O2SAT 99
== END 2024-04-11 21:42 | disposition home or self-care (01) ==
LOC: ER 17:29
DX: S39.012A Strain of muscle, fascia and tendon of lower back, initial encounter (principal); S80.02XA Contusion of left knee, initial encounter; J45.909 Unspecified asthma, uncomplicated; Z90.49 Acquired absence of other specified parts of digestive tract; Z79.899 Other long term (current) drug therapy; Z88.2 Allergy status to sulfonamides; W01.0XXA Fall on same level from slipping, tripping and stumbling without subsequent striking against object, initial encounter; Y93.89 Activity, other specified; Y92.89 Other specified places as the place of occurrence of the external cause; Y99.8 Other external cause status
CPT/HCPCS: 72072; 72100; 73560; 73610; A4606; A4663; A9150

== ENCOUNTER 2024-08-01 15:33 | Emergency (ER) | payer MEDICAID ==
[~2024-08-01] VITALS: Ht 160 cm; Wt 90.7 kg
[~2024-08-01 15:33] MED LIST changes: +IBUP-1490 PO
[2024-08-01] MEDS ORDERED: KETOROLAC TROMETHAMINE 15 MG INJ ONE (16:46)
[2024-08-01] MEDS ORDERED: DEXAMETHASONE SOD PHOSPHATE 10 MG INJ ONE (16:46)
[2024-08-01] MEDS: DEXAMETHASONE SOD PHOSPHATE 4 MG INJ IV ONE (16:49)
[2024-08-01] MEDS: KETOROLAC TROMETHAMINE 15 MG INJ IVP ONE (16:50)
[2024-08-01 16:55] LABS: BASOPHILS # (AUTO) 0.1 K/UL (0.0-0.2); DIFFERENTIAL COMMENT 1; EOSINOPHILS # (AUTO) 0.3 K/uL (0.0-0.7); EOSINOPHILS % (AUTO) 4.3 % (0.0-7.0); HEMATOCRIT 41.8 % (31.2-41.9); HEMOGLOBIN 14.3 g/dL (10.9-14.3); LYMPHOCYTES # (AUTO) 1.9 K/uL (0.8-4.8); MEAN CORPUSCULAR HEMOGLOBIN 29.5 uug (24.7-32.8); MEAN CORPUSCULAR HGB CONC 34 g/dL (32.3-35.6); MEAN CORPUSCULAR VOLUME 86.4 fL (75.5-95.3); MONOCYTES # (AUTO) 0.6 K/uL (0.1-1.30); MONOCYTES % (AUTO) 7.8 % (0.0-11.0); NEUTROPHILS # (AUTO) 4.7 K/uL (1.8-8.9); NEUTROPHILS % (AUTO) 61.9 % (38.5-71.5); PLATELET COUNT (AUTO) 312 K/uL (179-408); RED BLOOD CELL COUNT(AUTO) 4.84 MIL/uL (3.63-4.92); RED CELL DISTRIBUTION WIDTH 12.7 % (12.3-17.7); WHITE BLOOD COUNT (AUTO) 7.7 K/uL (3.8-11.8)
[2024-08-01 16:59] LABS: CARBON DIOXIDE 24 mmol/L (21-32); CHLORIDE 102 mmol/L (98-107); CREATININE 0.6 mg/dL (0.6-1.3); GLUCOSE 139 mg/dL (74-106); POTASSIUM 3.8 mmol/L (3.5-5.1); SODIUM SERUM 137 mmol/L (136-145); UREA NITROGEN, BLOOD 7 mg/dL (7-18)
[2024-08-01 17:08] LABS: ALANINE AMINOTRANSFERASE 33 U/L (14-59); ALBUMIN 3.8 g/dL (3.4-5.0); ALKALINE PHOSPHATASE 125 U/L (50-136); ASPARTATE AMINOTRANSFERASE 9 U/L (15-37); BILIRUBIN,DIRECT 0.1 mg/dL (0.0-0.2); BILIRUBIN,TOTAL 0.5 mg/dL (0.2-1.0); TOTAL PROTEIN, SERUM 8.5 g/dL (6.4-8.2)
[2024-08-01] MEDS ORDERED: CYCL5TAB PO (18:00)
[2024-08-01] MEDS ORDERED: IBUP-1957 PO (18:00)
[2024-08-01 18:17] VITALS: BP 145/87; O2SAT 98
== END 2024-08-01 18:18 | disposition home or self-care (01) ==
LOC: ER 15:47
DX: S39.012A Strain of muscle, fascia and tendon of lower back, initial encounter (principal); J40 Bronchitis, not specified as acute or chronic; E11.9 Type 2 diabetes mellitus without complications; E66.9 Obesity, unspecified; Z68.35 Body mass index [BMI] 35.0-35.9, adult; Z90.49 Acquired absence of other specified parts of digestive tract; Z79.1 Long term (current) use of non-steroidal anti-inflammatories (NSAID); Z79.891 Long term (current) use of opiate analgesic; Z79.899 Other long term (current) drug therapy; Z88.2 Allergy status to sulfonamides; Z88.1 Allergy status to other antibiotic agents; X58.XXXA Exposure to other specified factors, initial encounter; Y93.89 Activity, other specified; Y92.89 Other specified places as the place of occurrence of the external cause; Y99.8 Other external cause status
CPT/HCPCS: 99285; 74176; 96374; 96375; 80076; 80048; 83690; 85025; 85651; 85730; 84484; 36415; J1100; J1885; A4606; A4663

== ENCOUNTER 2025-01-13 22:18 | Emergency (ER) | payer MEDICAID ==
[~2025-01-13] VITALS: Ht 165.1 cm; Wt 92.6 kg
[~2025-01-13 22:18] MED LIST changes: +CYCL5TAB PO; +IBUP-1957 PO
[2025-01-13 23:28] LABS: BASOPHILS # (AUTO) 0.1 K/UL (0.0-0.2); BASOPHILS % (AUTO) 0.7 % (0.0-2.0); EOSINOPHILS # (AUTO) 0.3 K/uL (0.0-0.7); EOSINOPHILS % (AUTO) 3.3 % (0.0-7.0); HEMATOCRIT 40.3 % (31.2-41.9); HEMOGLOBIN 14.2 g/dL (10.9-14.3); LYMPHOCYTES # (AUTO) 3.2 K/uL (0.8-4.8); MEAN CORPUSCULAR HEMOGLOBIN 30.6 uug (24.7-32.8); MEAN CORPUSCULAR HGB CONC 35 g/dL (32.3-35.6); MEAN CORPUSCULAR VOLUME 86.8 fL (75.5-95.3); MONOCYTES # (AUTO) 0.6 K/uL (0.1-1.30); MONOCYTES % (AUTO) 7.3 % (0.0-11.0); NEUTROPHILS # (AUTO) 4.1 K/uL (1.8-8.9); NEUTROPHILS % (AUTO) 49.7 % (38.5-71.5); PLATELET COUNT (AUTO) 238 K/uL (179-408); RED BLOOD CELL COUNT(AUTO) 4.64 MIL/uL (3.63-4.92); RED CELL DISTRIBUTION WIDTH 13.4 % (12.3-17.7); WHITE BLOOD COUNT (AUTO) 8.2 K/uL (3.8-11.8)
[2025-01-13 23:31] LABS: *BILIRUBIN,URIN NEGATIVE (NEGATIVE); *CLARITY,URINE CLEAR (CLEAR); *COLOR,URINE YELLOW (YELLOW); *KETONES,URINE NEGATIVE (NEGATIVE); *PROTEIN,URINE NEGATIVE (NEGATIVE); *UROBILINOGEN,URINE 0.2 E.U./dl (NORMAL); LEUKOCYTE ESTERASE ,URINE 1+ (NEGATIVE); NITRITE, URINE NEGATIVE (NEGATIVE); UGLUCOSE NEGATIVE (NEGATIVE)
[2025-01-13 23:34] LABS: CALCIUM 9.1 mg/dL (8.5-10.1); CREATININE 0.8 mg/dL (0.6-1.3); POTASSIUM 3.7 mmol/L (3.5-5.1)
[2025-01-13 23:36] LABS: *BLOOD, URINE TRACE (NEGATIVE); BACTERIA,URINE FEW /HPF (NONE SEEN); SQUAMOUS EPITHELIAL CELL,UR NONE SEEN /HPF (NONE SEEN)
[2025-01-13 23:40] LABS: ALBUMIN 3.7 g/dL (3.4-5.0); BILIRUBIN,DIRECT 0.1 mg/dL (0.0-0.2); BILIRUBIN,TOTAL 0.5 mg/dL (0.2-1.0); TOTAL PROTEIN, SERUM 8.2 g/dL (6.4-8.2)
[2025-01-14] MEDS ORDERED: FAMOTIDINE 20 MG TABLET ONE (00:22)
[2025-01-14] MEDS ORDERED: KETOROLAC TROMETHAMINE 30 MG INJ ONE (00:23)
[2025-01-14] MEDS: FAMOTIDINE 20 MG TABLET PO ONE (00:42)
[2025-01-14] MEDS: KETOROLAC TROMETHAMINE 30 MG INJ IM ONE (00:43)
[2025-01-14] MEDS ORDERED: CIPR500T5 PO (01:28)
[2025-01-14] MEDS ORDERED: CIPROFLOXACIN HCL 250 MG TABLET ONE (01:30)
[2025-01-14] MEDS: CIPROFLOXACIN HCL 250 MG TABLET PO ONE (01:37)
[2025-01-14 01:38] VITALS: BP 148/90; TEMP 98.5; O2SAT 98
== END 2025-01-14 01:41 | disposition home or self-care (01) ==
LOC: ER 22:28
DX: N64.4 Mastodynia (principal); R10.9 Unspecified abdominal pain; N39.0 Urinary tract infection, site not specified; M79.602 Pain in left arm; M79.89 Other specified soft tissue disorders; R39.15 Urgency of urination; R92.313 Mammographic fatty tissue density, bilateral breasts; E11.9 Type 2 diabetes mellitus without complications; G89.4 Chronic pain syndrome; J45.909 Unspecified asthma, uncomplicated; K76.0 Fatty (change of) liver, not elsewhere classified; K85.90 Acute pancreatitis without necrosis or infection, unspecified; Z79.899 Other long term (current) drug therapy; Z87.19 Personal history of other diseases of the digestive system; Z88.2 Allergy status to sulfonamides; Z88.7 Allergy status to serum and vaccine; Z90.49 Acquired absence of other specified parts of digestive tract; Z87.39 Personal history of other diseases of the musculoskeletal system and connective tissue
CPT/HCPCS: 99285; 74176; 80076; 80048; 81001; 83690; 85025; 36415; 76641; 96372; J1885; A4606; A4663

== ENCOUNTER 2025-01-28 15:15 | Emergency (ER) | payer MEDICAID ==
[~2025-01-28] VITALS: Ht 162.6 cm; Wt 86.2 kg
[~2025-01-28 15:15] MED LIST changes: +CIPR500T5 PO
[2025-01-28] MEDS ORDERED: SULFAMETH/TRIMETH 800/160 MG TABLET PO ONE (15:45)
[2025-01-28] MEDS ORDERED: ACETAMINOPHEN 500 MG TABLET ONE (15:46)
[2025-01-28] MEDS ORDERED: IBUPROFEN 600 MG TABLET ONE (15:47)
[2025-01-28] MEDS: ACETAMINOPHEN 500 MG TABLET PO ONE (15:59)
[2025-01-28] MEDS: IBUPROFEN 600 MG TABLET PO ONE (15:59)
[2025-01-28] MEDS ORDERED: DOXYCYCLINE HYCLATE 100 MG TABLET ONE (16:08)
[2025-01-28] MEDS: DOXYCYCLINE HYCLATE 100 MG TABLET PO ONE (16:13)
[2025-01-28] MEDS ORDERED: DOXY100T2 PO (16:26)
[2025-01-28 16:41] VITALS: BP 139/94; TEMP 97.8; O2SAT 99
== END 2025-01-28 16:42 | disposition home or self-care (01) ==
LOC: ER 15:15
DX: S61.210A Laceration without foreign body of right index finger without damage to nail, initial encounter (principal); E11.9 Type 2 diabetes mellitus without complications; G89.4 Chronic pain syndrome; J45.909 Unspecified asthma, uncomplicated; Z79.899 Other long term (current) drug therapy; Z88.2 Allergy status to sulfonamides; Z88.7 Allergy status to serum and vaccine; Z90.49 Acquired absence of other specified parts of digestive tract; W26.8XXA Contact with other sharp object(s), not elsewhere classified, initial encounter; Y93.89 Activity, other specified; Y92.89 Other specified places as the place of occurrence of the external cause; Y99.8 Other external cause status
CPT/HCPCS: A4606; A4663; A9150